=== PATIENT | female | born 1990 | race Caucasian/White ===

== ENCOUNTER 2016-04-25 16:24 | Emergency (ER) | payer OTHER ==
[~2016-04-25] VITALS: Ht 167.6 cm; Wt 70.3 kg
[~2016-04-25 16:24] MED LIST: Hydrocodone/Acetaminophen PO; LEVO500T38 PO; NORE1TAB PO
[2016-04-25 17:55] VITALS: BP 103/63
--- NOTE | 2016-04-25 18:17 | PHYS DOC ---
Past Medical History Past Medical History: No Pertinent History Past Surgical History: No Surgical History Alcohol Use: Rarely Drug Use: None Adult General Chief Complaint Chief Complaint: VOMITING IN HPI HPI Patient is a 25 year old female who presents with nausea/vomiting/diarrhea in the setting of . Patient reports since Sunday she has had nausea and vomiting. Yesterday she started having diarrhea as well. No blood in stool or emesis. She also reports some lower abdominal cramping and chills. No vaginal bleeding. Patient called her OBs office and was instructed to come to the Emergency Department. Of note, patient has been this sick with similar symptoms. Patient is with LMP 1/. She has not yet seen an SALES ORDER SPECIALIST, but has an appointment scheduled for beginning of next week. Review of Systems Review of Systems Constitutional: Chills Eyes: Denies change in visual acuity or eye pain HENT: Denies nasal congestion or sore throat Respiratory: Denies cough or shortness of breath Cardiovascular: Denies chest pain GI: Lower abdominal cramping, nausea, vomiting, diarrhea; denies bloody stools : Denies dysuria or hematuria. Denies vaginal bleeding or discharge Musculoskeletal: Denies back pain or joint pain Integument: Denies rash or skin lesions Neurologic: Denies headache, focal weakness or sensory changes Current Medications Current Medications Current Medications Medications (Trade) Dose Ordered Sig/Clifton Start Time Stop Time Status Last Admin Dose Admin Metoclopramide HCl (Reglan) 10 mg 1X ONCE 04/25/16 19:00 04/25/16 19:01 DC 04/25/16 18:56 10 MG Nitrofurantoin Macrocrystals (Macrobid) 100 mg 1X ONCE 04/25/16 20:30 04/25/16 20:31 Sodium Chloride (Iv Sodium Chloride 0.9% 1000ml Bag) 1,000 ml @ 1,000 mls/hr Q1H 04/25/16 19:00 04/25/16 19:59 DC 04/25/16 18:56 1,000 MLS/HR Allergies Allergies Allergies Uncoded Allergies Type Severity Reaction Last Updated Verified tide fabric softener Allergy Intermediate rash, itching 11/27/13 Physical Exam Physical Exam Constitutional: Well developed, well nourished, no acute distress, non-toxic appearance HENT: Normocephalic, atraumatic, bilateral external ears normal Eyes: EOMI, conjunctiva normal, no discharge Neck: Normal range of motion, no stridor Cardiovascular: Heart rate normal, regular rhythm, no murmur Lungs & Thorax: Bilateral breath sounds clear to auscultation Abdomen: Bowel sounds normal, soft, non-distended, no TTP Pelvic: Moderate amount thick white discharge in vault, no bleeding, no CMT or adnexal tenderness Skin: Warm, dry, no erythema, no rash Extremities: No obvious deformity, no edema Neurologic: Alert and oriented X 3, no gross deficits noted Psychologic: Affect normal, judgement normal, mood normal Current Patient Data Vital Signs Vital Signs Date Time Temp Pulse Resp B/P Pulse Ox O2 Delivery O2 Flow Rate FiO2 04/25/16 17:55 98.1 73 18 103/63 99 Room Air 98.1 Lab Values Laboratory Tests Test 04/25/16 18:44 04/25/16 18:51 White Blood Count 12.8x10^3/uL (4.0-11.0) H Red Blood Count 4.79x10^6/uL (3.50-5.40) Hemoglobin 13.4g/dL (12.0-15.5) Hematocrit 40.4% (36.0-47.0) Mean Corpuscular Volume 84fL (79-100) Mean Corpuscular Hemoglobin 28pg (25-35) Mean Corpuscular Hemoglobin Concent 33g/dL (31-37) Red Cell Distribution Width 13.4% (11.5-14.5) Platelet Count 248x10^3/uL (140-400) Neutrophils (%) (Auto) 87% (31-73) H Lymphocytes (%) (Auto) 9% (24-48) L Monocytes (%) (Auto) 4% (0-9) Eosinophils (%) (Auto) 0% (0-3) Basophils (%) (Auto) 0% (0-3) Neutrophils # (Auto) 11.0x10^3uL (1.8-7.7) H Lymphocytes # (Auto) 1.1x10^3/uL (1.0-4.8) Monocytes # (Auto) 0.5x10^3/uL (0.0-1.1) Eosinophils # (Auto) 0.0x10^3/uL (0.0-0.7) Basophils # (Auto) 0.1x10^3/uL (0.0-0.2) Segmented Neutrophils % 93% (35-66) H Band Neutrophils % 2% (0-9) Lymphocytes % 4% (24-48) L Monocytes % 1% (0-10) Platelet Estimate Adequate (ADEQUATE) Urine Collection Type Unknown Urine Color Dk yellow Urine Clarity Turbid Urine pH 6.0 Urine Specific Arrington >=1.030 Urine Protein 100mg/dL (NEG-TRACE) Urine Glucose (UA) Negativemg/dL (NEG) Urine Ketones (Stick) 15mg/dL (NEG) Urine Blood Small (NEG) Urine Nitrite Negative (NEG) Urine Bilirubin Negative (NEG) Urine Urobilinogen Dipstick 0.2mg/dL (0.2 mg/dL) Urine Leukocyte Esterase Large (NEG) Urine RBC Occ/HPF (0-2) Urine WBC 20-40/HPF (0-4) Urine Squamous Epithelial Cells Many/LPF Urine Bacteria Many/HPF (0-FEW) Urine Mucus Slight/LPF Maternal Serum HCG Beta Subunit [id number]/mL (0-6) H Sodium Level 139mmol/L (136-145) Potassium Level 3.9mmol/L (3.5-5.1) Chloride Level 100mmol/L (98-107) Carbon Dioxide Level 26mmol/L (21-32) Anion Gap 13 (6-14) Blood Urea Nitrogen 9mg/dL (7-20) Creatinine 0.8mg/dL (0.6-1.0) Estimated GFR (Cockcroft-Gault) 86.0 BUN/Creatinine Ratio 11 (6-20) Glucose Level 96mg/dL (70-99) Calcium Level 8.9mg/dL (8.5-10.1) Total Bilirubin 0.6mg/dL (0.2-1.0) Aspartate Amino Transferase (AST) 13U/L (15-37) L Alanine Aminotransferase (ALT) 14U/L (14-59) Alkaline Phosphatase 66U/L (46-116) Total Protein 8.1g/dL (6.4-8.2) Albumin 3.9g/dL (3.4-5.0) Albumin/Globulin Ratio 0.9 (1.0-1.7) L POC Urine HCG, Qualitative Hcg positive (Negative) Laboratory Tests 04/25/16 18:44 Laboratory Tests 04/25/16 18:44 Microbiology 04/25/16 Wet Prep - Final, Complete Microbiology 04/25/16 Wet Prep - Final, Complete EKG EKG [] Radiology/Procedures Radiology/Procedures Pelvic US: Impression: Single live IUP 8 weeks 4 days gestational age. The estimated date of confinement sonographically is 12/01/2016. Course & Med Decision Making Course & Med Decision Making Pertinent Labs and Imaging studies reviewed. (See chart for details) Patient is 25-year-old female who presents with nausea/vomiting/diarrhea and lower abdominal cramping in the setting of . Suspect viral gastroenteritis, especially as she has sick contacts with similar symptoms. IV fluids and nausea medication ordered. Pelvic exam performed, swabs sent. Ultrasound ordered, results as above. Labs largely unremarkable except for slight leukocytosis. UA with bacteriuria, bacterial vaginosis noted on pelvic swabs. Discussed results with patient, who is feeling better at this time. Will plan discharge home with prescription for Diclegis and Zofran for nausea, Flagyl , Macrobid, vitamins. Given instructions for follow-up and return precautions. Dragon Disclaimer Dragon Disclaimer This electronic medical record was generated, in whole or in part, using a voice recognition dictation system. Departure Departure Impression: Primary Impression: Gastroenteritis Additional Impression: Vomiting affecting Disposition: 01 HOME, SELF-CARE Condition: IMPROVED Referrals: NO PCP (PCP) Patient Instructions: - First Trimester, Viral Gastroenteritis Additional Instructions: Thank you for allowing us to provide care today in the Emergency Department. Take the provided medication as directed. Keep your follow up appointment with your SALES ORDER SPECIALIST. Return promptly to the Emergency Department if you develop any new or concerning symptoms. Scripts Nitrofurantoin Monohyd/M-Cryst (Macrobid 100 Mg Capsule)100 Mg Capsule1 Cap PO BID #10 CAP Prov:CLIVE WELLS MD 04/25/16 Metronidazole 500 Mg Tablet1 Tab PO BID #14 TAB Prov:CLIVE WELLS MD 04/25/16 Vits #90/Iron Fum/Fa ( Formula Tablet)1 Each Tablet1 Each PO DAILY #30 Prov:CLIVE WELLS MD 04/25/16 Ondansetron (Zofran Odt)4 Mg Tab.rapdis1 Tab SL Q8HRS PRN NAUSEA #10 TAB Prov:CLIVE WELLS MD 04/25/16 Doxylamine/Pyridoxine Hcl (Diclegis Dr 10-10 Mg Tablet)1 Each Tablet.dr1 Each PO BID PRN NAUSEA #30 Prov:CLIVE WELLS MD 04/25/16 Problem Qualifiers CLIVE WELLS MD Apr 25, 2016 18:17
[2016-04-25 18:55] LABS: BILIRUBIN,URINE NEGATIVE (NEG); GLUCOSE,URINE NEGATIVE (NEG); NITRITE,URINE NEGATIVE (NEG); PROTEIN,URINE 100 mg/dL (NEG-TRACE); UROBILINOGEN,URINE 0.2 mg/dL (0.2 mg/dL)
[2016-04-25 18:56] LABS: BASO # 0.1 x10^3/uL (0.0-0.2); BASO % 0 % (0-3); EOS % 0 % (0-3); HEMATOCRIT 40.4 % (36.0-47.0); HEMOGLOBIN 13.4 g/dL (12.0-15.5); LYMPH # 1.1 x10^3/uL (1.0-4.8); LYMPH % 9 % (24-48); MEAN CORPUSCULAR HEMOGLOBIN 28 pg (25-35); MEAN CORPUSCULAR HGB CONC 33 g/dL (31-37); MEAN CORPUSCULAR VOLUME 84 fL (79-100); MONO % 4 % (0-9); NEUT % 87 % (31-73); PLATELET COUNT 248 x10^3/uL (140-400); RED BLOOD COUNT 4.79 x10^6/uL (3.50-5.40); RED CELL DISTRIBUTION WIDTH 13.4 % (11.5-14.5); WHITE BLOOD COUNT 12.8 x10^3/uL (4.0-11.0)
[2016-04-25] MEDS ORDERED: IV NORMAL SALINE 1000ML BAG 1,000 ML IV SCH (19:00)
[2016-04-25] MEDS ORDERED: METOCLOPRAMIDE HCL 10 MG/2 ML VIAL. IV ONE (19:00)
[2016-04-25 19:03] LABS: BACTERIA,URINE MANY /HPF (0-FEW); RBC,URINE OCC /HPF (0-2); WBC,URINE 20-40 /HPF (0-4)
[2016-04-25 19:06] LABS: CALCIUM 8.9 mg/dL (8.5-10.1); CREATININE 0.8 mg/dL (0.6-1.0); POTASSIUM 3.9 mmol/L (3.5-5.1)
[2016-04-25 19:07] LABS: SQUAMOUS EPITHELIAL CELL,UR MANY /LPF
[2016-04-25 19:12] LABS: ALBUMIN 3.9 g/dL (3.4-5.0); ALBUMIN/GLOBULIN RATIO 0.9 (1.0-1.7); TOTAL BILIRUBIN 0.6 mg/dL (0.2-1.0); TOTAL PROTEIN 8.1 g/dL (6.4-8.2)
--- NOTE | 2016-04-25 19:28 | RAD ---
Ob less than 14 weeks Indication: Abdominal cramping. There is an intrauterine gestational sac containing a pole. Justice-rump length measurement is approximately 2.0 centimeters consistent with 8 weeks 4 days gestation. heart rate was recorded at 178 beats per minute. No perigestational sac hemorrhage is identified. No adnexal mass is identified. There is no free fluid. Impression: Single live IUP 8 weeks 4 days gestational age. The estimated date of confinement sonographically is 12/01/2016. Electronically signed by: Julio Fowler MD (Apr 25, 2016 19:26:53)
[2016-04-25 19:49] LABS: PLT ESTIMATE ADEQUATE (ADEQUATE)
[2016-04-25] MEDS ORDERED: DOXY1TAB3 PO (19:58)
[2016-04-25] MEDS ORDERED: METR500T4 PO (19:58)
[2016-04-25] MEDS ORDERED: PREN1TAB26 PO (19:58)
[2016-04-25] MEDS ORDERED: ONDA4TAB10 SL (19:58)
[2016-04-25] MEDS ORDERED: NITR100C62 PO (19:58)
[2016-04-25] MEDS ORDERED: NITROFURANTOIN MONOHYD/M-CRYST 100 MG CAPSULE. PO ONE (20:30)
== END 2016-04-25 20:00 | disposition home or self-care (01) ==
LOC: ER 16:24
DX: O26.891 Other specified pregnancy related conditions, first trimester (principal); K52.9 Noninfective gastroenteritis and colitis, unspecified; O21.9 Vomiting of pregnancy, unspecified; R10.9 Unspecified abdominal pain; Z3A.08 8 weeks gestation of pregnancy
CPT/HCPCS: 36415; 76801; 80053; 81001; 81025; 84702; 85007; 85027; 87086; 87491; 87591; 96361; 96374; 99285; J2765; J7030; Q0111